=== PATIENT | male | born 1940 | race Caucasian/White ===

== ENCOUNTER 2023-05-12 00:40 | Observation (INO) | payer OTHER ==
[2023-05-12 00:43] VITALS: BMI 29.8
[2023-05-12] MEDS ORDERED: ACETAMINOPHEN INJECTION 100 ML IVPB ONE (02:01)
[2023-05-12] MEDS: ACETAMINOPHEN 1000 MG/100 ML BAG IVPB ONE (02:19)
[2023-05-12 02:22] LABS: BASO % 0.6 % (0-2.0); EOS % 0.6 % (0-4.5); HEMATOCRIT 40.8 % (35.4-49); HEMOGLOBIN 13.5 GM/dL (11.7-16.9); LYMPH % 13.5 % (8-40); MCHC 33.1 g/dl (32.0-35.9); MEAN CELL VOLUME 84.5 fl (80-96); MONO % 9.1 % (3.8-10.2); NEUT % 76.2 % (42.8-82.8); PLATELET COUNT 177 10^3/uL (134-434); RBC 4.83 M/mm3 (4.00-5.60); RDW 15.2 % (11.9-15.9); WHITE BLOOD COUNT 10.3 K/mm3 (4.0-10.0)
[2023-05-12 02:32] LABS: INR 1.1 (0.83-1.09); PROTHROMBIN TIME (PATIENT) 12.7 SEC (9.7-13.0)
[2023-05-12 02:34] LABS: ACTIVATED PTT 34.4 SECONDS (25.2-36.5)
[2023-05-12 02:41] LABS: POTASSIUM 4.3 mmol/L (3.5-5.1)
[2023-05-12 02:43] LABS: CALCIUM 9.2 mg/dL (8.5-10.1)
[2023-05-12 02:44] LABS: ALBUMIN 3.6 g/dl (3.4-5.0); BLOOD UREA NITROGEN 25.4 mg/dL (7-18)
[2023-05-12 02:47] LABS: CREATININE 1.7 mg/dL (0.55-1.3)
[2023-05-12 02:48] LABS: TOT PROT 6.6 g/dl (6.4-8.2)
[2023-05-12 02:51] LABS: N-TERMINAL BNP 2186.5 pg/ml (5-450)
[2023-05-12] MEDS: ISOSORBIDE MONONITRATE 30 MG TAB.SR.24H (FP) PO SCH (10:01)
[2023-05-12] MEDS: metoPROLOL SUCCINATE 25 MG TAB.SR.24H (FP) PO SCH (10:01)
[2023-05-12] MEDS: LOSARTAN POTASSIUM 50 MG TABLET PO SCH (10:01)
[2023-05-12] MEDS: ASPIRIN 81 MG CHEWABLE TABLETS PO SCH (10:01)
[2023-05-12] MEDS: CLOPIDOGREL BISULFATE 75 MG TABLET (FP) PO SCH (10:01)
[2023-05-12] MEDS: UMECLIDINIUM/VILANTEROL (ANORO) 62.5/25 MCG INHALER IH SCH (10:02)
[2023-05-12] MEDS: LIDOCAINE 4% PATCH TP ONE (10:02)
[2023-05-12] MEDS ORDERED: HEPARIN NA (PORCINE) 5,000 UNITS/ML 1ML VIAL SQ SCH (14:00)
[2023-05-12] MEDS: LIDOCAINE PATCH REMOVAL MC ONE (21:18)
[2023-05-12] MEDS: ATORVASTATIN CA 40 MG TABLET (FP) PO SCH (21:18)
[2023-05-13 07:18] LABS: BASO % 0.5 % (0-2.0); EOS % 1.6 % (0-4.5); HEMATOCRIT 38.7 % (35.4-49); HEMOGLOBIN 12.5 GM/dL (11.7-16.9); LYMPH % 13.8 % (8-40); MCH 27.2 pg (25.7-33.7); MCHC 32.4 g/dl (32.0-35.9); MEAN PLT VOLUME 8.4 fl (7.5-11.1); MONO % 7.5 % (3.8-10.2); NEUT % 76.6 % (42.8-82.8); PLATELET COUNT 160 10^3/uL (134-434); RDW 14.5 % (11.9-15.9); WHITE BLOOD COUNT 10.7 K/mm3 (4.0-10.0)
[2023-05-13 07:35] LABS: POTASSIUM 3.9 mmol/L (3.5-5.1)
[2023-05-13 07:38] LABS: CALCIUM 8.5 mg/dL (8.5-10.1)
[2023-05-13 07:39] LABS: BLOOD UREA NITROGEN 19.1 mg/dL (7-18); MAGNESIUM 1.9 mg/dL (1.8-2.4)
[2023-05-13 07:41] LABS: PHOSPHOROUS 2.2 mg/dL (2.5-4.9)
[2023-05-13 07:42] LABS: CREATININE 1.6 mg/dL (0.55-1.3)
[2023-05-13 07:43] LABS: BILIRUBIN,TOTAL 0.9 mg/dL (0.2-1); TOT PROT 5.3 g/dl (6.4-8.2)
[2023-05-13 07:51] LABS: ALBUMIN 2.8 g/dl (3.4-5.0)
[2023-05-13] MEDS: metoPROLOL SUCCINATE 25 MG TAB.SR.24H (FP) PO SCH (10:05)
[2023-05-13] MEDS ORDERED: REGADENOSON 0.4 MG/5 ML PRE-FILLED SYRINGE IVPUSH ONE (12:10)
[2023-05-13] MEDS: REGADENOSON 0.4 MG/5 ML PRE-FILLED SYRINGE IVPUSH ONE (13:01)
[2023-05-14 06:52] VITALS: PULSE 80; RESP 20
[2023-05-14 08:27] LABS: BASO % 0.5 % (0-2.0); EOS % 3.5 % (0-4.5); HEMOGLOBIN 12.4 GM/dL (11.7-16.9); LYMPH % 16.7 % (8-40); MCH 27.7 pg (25.7-33.7); MCHC 32.7 g/dl (32.0-35.9); MEAN CELL VOLUME 84.9 fl (80-96); MEAN PLT VOLUME 8.7 fl (7.5-11.1); MONO % 6.7 % (3.8-10.2); NEUT % 72.6 % (42.8-82.8); PLATELET COUNT 181 10^3/uL (134-434); RBC 4.48 M/mm3 (4.00-5.60); WHITE BLOOD COUNT 8.4 K/mm3 (4.0-10.0)
[2023-05-14 08:51] LABS: CALCIUM 8.6 mg/dL (8.5-10.1)
[2023-05-14 08:54] LABS: CREATININE 1.9 mg/dL (0.55-1.3)
[2023-05-14 08:55] LABS: BILIRUBIN,TOTAL 0.8 mg/dL (0.2-1); TOT PROT 5.8 g/dl (6.4-8.2)
[2023-05-14 09:04] VITALS: BP 132/68; TEMP 97.8
== END 2023-05-14 13:43 | disposition home or self-care (01) ==
LOC: JER 00:40 → JERBED 05:50 → J4S 06:58
PROVIDERS: ADMIT Internal Medicine; ATTEND Internal Medicine
PROC: 3E033NZ Introduction of Analgesics, Hypnotics, Sedatives into Peripheral Vein, Percutaneous Approach (ICD-10-PCS; principal; 2023-05-12)
PROC: 3E033GC Introduction of Other Therapeutic Substance into Peripheral Vein, Percutaneous Approach (ICD-10-PCS; 2023-05-12)
DX: N18.9 Chronic kidney disease, unspecified (principal); R07.9 Chest pain, unspecified; M54.2 Cervicalgia; J43.9 Emphysema, unspecified; I25.10 Atherosclerotic heart disease of native coronary artery without angina pectoris; I11.0 Hypertensive heart disease with heart failure; Z95.5 Presence of coronary angioplasty implant and graft; R79.89 Other specified abnormal findings of blood chemistry; I65.21 Occlusion and stenosis of right carotid artery; E78.5 Hyperlipidemia, unspecified; R94.4 Abnormal results of kidney function studies; N28.1 Cyst of kidney, acquired; I25.2 Old myocardial infarction; Z87.891 Personal history of nicotine dependence
CPT/HCPCS: 0241U-QW; 36415; 70498-TC; 71045-TC-FY; 71275-TC; 78452-TC; 80053; 83735; 83880; 84100; 84484; 85025; 85610; 85730; 86850; 86900; 86901; 93005; 93010; 93017; 93306-TC; 96374; 96375; 97116-GP; 97161-GP; 99285-25; A9502; G0378; J0131; J2785